=== PATIENT | female | born 1985 | race Caucasian/White ===

== ENCOUNTER 2018-02-10 18:54 | Emergency (ER) | payer OTHER, MEDICAID ==
[~2018-02-10] VITALS: Ht 170.2 cm; Wt 88.5 kg
[~2018-02-10 18:54] MED LIST: ALBUTEROL2.5 MG/0.1 INH; ANAPROX DS550 MG PO; ASPIRIN EC81 M1; CIPROFLOXACIN500 M1 PO; CIPROFLOXACIN500 M3 PO; FLAGYL500 MG PO; METFORMIN HCL500 M2 PO; NAPROSYN500 MG PO; NOHOMEMEDICATIONS; NORCO 5-325 TA1 EACH PO; PREDNISONE50 MG PO; ULTRAM 50MG TAB50 MG PO; VENTOLIN HFA 1818 GM INH; ZOFRAN ODT4 MG PO
[2018-02-10] MEDS ORDERED: HYDROCODONE-AP1 EAC6 PO (20:04)
[2018-02-10 20:20] VITALS: BP 121/75
== END 2018-02-10 20:23 | disposition home or self-care (01) ==
LOC: M.ERS 18:54
DX: S93.492A Sprain of other ligament of left ankle, initial encounter (principal); S93.692A Other sprain of left foot, initial encounter; J45.909 Unspecified asthma, uncomplicated; Z88.8 Allergy status to other drugs, medicaments and biological substances; W10.8XXA Fall (on) (from) other stairs and steps, initial encounter; Y93.89 Activity, other specified; Y92.89 Other specified places as the place of occurrence of the external cause; Y99.8 Other external cause status

== ENCOUNTER 2018-02-19 14:59 | Emergency (ER) | payer OTHER, MEDICAID ==
[~2018-02-19] VITALS: Ht 170.2 cm; Wt 88.5 kg
[~2018-02-19 14:59] MED LIST changes: +HYDROCODONE-AP1 EAC6 PO
[2018-02-19 15:16] VITALS: BP 125/67
[2018-02-19] MEDS ORDERED: HYDROCODONE-AP1 EAC6 PO (15:39)
== END 2018-02-19 15:42 | disposition home or self-care (01) ==
LOC: M.ERS 14:59
DX: S93.492A Sprain of other ligament of left ankle, initial encounter (principal); J45.909 Unspecified asthma, uncomplicated; Z88.8 Allergy status to other drugs, medicaments and biological substances; W18.39XA Other fall on same level, initial encounter; Y93.89 Activity, other specified; Y92.89 Other specified places as the place of occurrence of the external cause; Y99.8 Other external cause status

== ENCOUNTER 2019-01-11 18:20 | Emergency (ER) | payer OTHER, MEDICAID ==
[~2019-01-11] VITALS: Ht 170.2 cm; Wt 88.5 kg
[2019-01-11] MEDS ORDERED: MOBIC7.5 MG PO (19:00)
[2019-01-11 19:44] VITALS: BP 108/60
== END 2019-01-11 19:45 | disposition home or self-care (01) ==
LOC: M.ERS 18:20
DX: G56.01 Carpal tunnel syndrome, right upper limb (principal); J45.909 Unspecified asthma, uncomplicated; Z88.8 Allergy status to other drugs, medicaments and biological substances; Z90.49 Acquired absence of other specified parts of digestive tract; Z98.890 Other specified postprocedural states